=== PATIENT | male | born 1935 | race Caucasian/White ===

== ENCOUNTER 2020-05-07 14:31 | Emergency (ER) | payer OTHER, SELFPAY ==
[2020-05-07] VITALS (10 sets, daily range): BP systolic 108–128; BP diastolic 40–58; PULSE 74–87; RESP 14–20; TEMP 36.6–36.9; O2SAT 97–99; BMI 35.0
--- NOTE | ~2020-05-07 | CT_ITS ---
EXAMINATION: CT HEAD WITHOUT CONTRAST CLINICAL INFORMATION: AMS COMPARISON: June 12, 2019 TECHNIQUE: Contiguous axial imaging was performed from the skull base to vertex without intravenous administration of contrast. This CT examination was performed using dose optimization techniques as appropriate, variously including the following: *Automated exposure control *Adjustment of mA and/or kV according to patient size (this includes techniques or standardized protocols for targeted exams where dose is matched to indication/reason for exam; i.e. extremities or head) *Use of iterative reconstruction technique DLP: 879 mGy-cm FINDINGS: There is no evidence of acute intracranial hemorrhage or territorial infarction. No abnormal mass effect or midline shift is seen. Jackson to white matter differentiation is well preserved. No extra-axial fluid collections are identified. There is prominence of ventricles, sulci, and cisterns related to diffuse atrophy. There is periventricular white matter low density without significant change consistent with microangiopathy. There is calcification of carotid and vertebral arteries bilaterally. The osseous structures and soft tissues are normal. The mastoid air cells and visualized portions of the paranasal sinuses are well aerated. CT/CT head/brain wo con IMPRESSION: No acute intracranial pathology.
--- NOTE | ~2020-05-07 | XR_ITS ---
EXAMINATION: XR CHEST CLINICAL INFORMATION: Altered mental status. COMPARISON: Prior chest July 2019. TECHNIQUE: Frontal view of the chest was obtained. FINDINGS: Minimal linear opacity at the left base similar to prior compatible scarring and/or recurrent discoid atelectasis. Lungs otherwise clear. Calcification of the dorsal aorta. Cardiac silhouette and pulmonary vascularity unremarkable. Bone and soft tissues unremarkable. XR/XR chest 1V IMPRESSION: Minimal opacity left base compatible discoid atelectasis or scarring. No change compared to July 2019
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
--- NOTE | 2020-05-07 15:09 | ECG_ITS ---
Test Reason : AMS Blood Pressure : / mmHG Vent. Rate : 077 BPM Atrial Rate : 077 BPM P-R Int : 154 ms QRS Dur : 096 ms QT Int : 398 ms P-R-T Axes : 049 019 040 degrees QTc Int : 450 ms Normal sinus rhythm Normal ECG When compared with ECG of 05-SEP-2019 02:59, Premature atrial complexes are no longer Present Referred By: Leidy Gonsalez Electronically Signed By:ELIGIO GOSS MD
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
--- NOTE | 2020-05-07 15:43 | MHC.CM.ED ---
Patient came to ER from [facility] on [address] under Section 12. T/W attempted to speak to social security specialistKimberlee at [facility]. Left voicemail requesting return telephone call. Patient is well known to case investigator. Patient was discharged to [facility] in July 2019. T/W spoke with patient's HCP/daughter, Rafaela via telephone at [phone]. Patient was transferred from [facility] to [facility] on 04/27. Patient stated he needed to go home because his is sick. Rafaela verified Ivanna (), has dementia, but basically has her 2 daughters around 24 hours a day to care for her due to confusion. But otherwise, there are no new medical issues that would require patient to return home. Rafaela will be faxing a letter from Dr Wolfe stating patient can't return home. Rafaela is requesting patient's son, Morgan be contacted tonight with any issues with patient, because Rafaela will be caring for their mother fermin. Medical work up is pending. Crisis eval will be ordered per Irasema MARTINS. Continue to monitor for d/c needs.
[2020-05-07 16:22] LABS: MANUAL DIFF FLAG NO
[2020-05-07 16:25] LABS: Basophils Percent Auto 0.3 % (0-2); Eosinophils Absolute Auto 0.4 X10*3/uL (0.0-0.4); Eosinophils Percent Auto 3.3 % (0-4); Hematocrit 42.8 % (42-52); Imm Gran Abs Auto 0.02 X10*3/uL (0.00-0.03); Imm Gran Pct Auto 0.2 % (0.0-0.4); Lymphocytes Absolute Auto 2.4 X10*3/uL (1.2-4.9); Lymphocytes Percent Auto 21.2 % (20-40); Mean Corpuscular HGB Conc 32.7 g/dl (31.0-36.0); Mean Corpuscular Hemoglobin 30.7 pg (27.0-33.0); Mean Corpuscular Volume 93.9 fL (80-98); Mean Platelet Volume 10.4 fL (9.4-12.4); Monocytes Percent Auto 8.9 % (2-11); Neutrophils Absolute Auto 7.3 X10*3/uL (2.0-8.3); Neutrophils Percent Auto 66.1 % (45-73); Platelet Count 216 X10*3/uL (160-400); Red Blood Count 4.56 X10*6/uL (4.60-5.80); Red Cell Distribution Width 12.9 % (11.0-16.0); White Blood Count 11.1 X10*3/uL (4.8-10.8)
[2020-05-07 16:28] LABS: Glucose Urine UA NEG (NEG); Leukocyte Esterase Urine NEG (NEG); Nitrite Urine NEG (NEG); PH 5.5 (5.0-8.0); Urine Blood NEG (NEG); Urine Ketones NEG (NEG); Urine Protein NEG (NEG-TRACE)
[2020-05-07 16:29] LABS: Appearance Urine CLEAR; Color Urine YELLOW
[2020-05-07 16:49] LABS: Ammonia 44 umol/L (13-55)
[2020-05-07 16:55] LABS: Alanine Aminotransferase 7 U/L (0-40); Albumin Level 4.1 g/dL (3.5-5.0); Alkaline Phosphatase 101 U/L (39-117); Anion Gap 17 (12-20); Aspartate Amino Transferase 12 U/L (5-37); Bilirubin Total 0.2 mg/dL (0.0-1.0); Blood Urea Nitrogen 23 mg/dL (9-16); Calcium 8.9 mg/dL (8.4-10.2); Carbon Dioxide 29 mmol/L (22-29); Chloride 102 mmol/L (96-108); Estimated Glomerular Filt Rate > 60; Glucose Random 112 mg/dL (60-115); Sodium 143 mmol/L (135-145); Total Protein 7.2 g/dL (6.5-8.0)
[2020-05-07 16:56] LABS: Amphetamine Screen Urine Not Detected (Not Detect); Barbiturates, Urine Not Detected (Not Detect); Benzodiazepines Screen Urine Not Detected (Not Detect); Cannabinoid Screen Urine Not Detected (Not Detect); Cocaine Screen Urine Not Detected (Not Detect); Opiate Screen Urine Not Detected (Not Detect); Phencyclidine Screen Urine Not Detected (Not Detect)
--- NOTE | 2020-05-07 18:25 | PC.NURSE ---
report faxed to N
--- NOTE | 2020-05-07 18:59 | PC.NURSE ---
CALLED [facility] TO CONFIRM THEY RECEIVED PT SUMMARY. KARIME CONFIRMED THAT FAX WAS RECIEVED.
--- NOTE | 2020-05-07 19:55 | PC.NURSE ---
pt calm and cooperative, reports that he did have dinner and is not interested in anything to eat or drink right now. pt aware of his surrounding, has clear speech and is moving all extremities. pt able to use urinal while seated on side of bed.
--- NOTE | 2020-05-07 20:02 | PC.NURSE ---
pt requesting breathing treatment.
--- NOTE | 2020-05-07 20:29 | PC.NURSE ---
pt unhooked himself from wall oxygen and ambulatory to bathroom with steady gait. pt placed on portable tank. spo2 97%.
--- NOTE | 2020-05-07 20:38 | PC.NURSE ---
pt given hospital bed for comfort.
--- NOTE | 2020-05-07 21:21 | PC.NURSE ---
case management speaking with patient.
[2020-05-07 21:26] LABS: COVID-19 Test Negative (Negative); IDNOW Serial# 9DD0AD1C
[2020-05-07] MEDS: Montelukast Sodium 10 MG TABLET PO (21:53)
[2020-05-07] MEDS: Spironolactone 25 MG TABLET PO (21:53)
[2020-05-07] MEDS: Escitalopram Oxalate 20 MG TABLET PO (21:54)
[2020-05-07] MEDS: Metoprolol Tartrate 50 MG TABLET PO (21:54)
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
[2020-05-07] MEDS: Fluticasone Propionate Nasal 16 GM SPRAY 1 SPRAY NOSTRIL-B (22:53)
[2020-05-07] MEDS: Brimonidine Tartrate 0.2% Oph 5 ML BOTTLE 1 DROP EYE-BOTH (22:53)
[2020-05-08] VITALS (14 sets, daily range): BP systolic 107–122; BP diastolic 36–58; PULSE 59–87; RESP 14–20; TEMP 36.7–36.8; O2SAT 94–100
--- NOTE | 2020-05-08 02:45 | PC.NURSE ---
pt sleeping, pt ambulatory to bathroom with steady gait. pt asked to use a walker for safety/stability. walker provided for him.
--- NOTE | 2020-05-08 08:17 | PC.NURSE ---
[phone] Lexi daughter, this RN gave update [phone] Edward son
[2020-05-08] MEDS: Metoprolol Tartrate 50 MG TABLET PO ×2 (08:33→20:21)
[2020-05-08] MEDS: Torsemide 20 MG TABLET PO (08:34)
[2020-05-08] MEDS: Loratadine 10 MG TABLET PO (08:34)
[2020-05-08] MEDS: Losartan Potassium 25 MG TABLET PO (08:35)
[2020-05-08] MEDS: Aspirin 81 MG TAB.CHEW PO (08:35)
[2020-05-08] MEDS: Brimonidine Tartrate 0.2% Oph 5 ML BOTTLE 1 DROP EYE-BOTH ×2 (08:36→20:22)
[2020-05-08] MEDS: Tamsulosin HCL 0.4 MG CAPSULE PO (08:36)
[2020-05-08] MEDS: Finasteride 5 MG TABLET PO (08:36)
[2020-05-08] MEDS: Escitalopram Oxalate 20 MG TABLET PO (08:36)
[2020-05-08] MEDS: Fluticasone Propionate Nasal 16 GM SPRAY 1 SPRAY NOSTRIL-B (08:36)
[2020-05-08] MEDS: Spironolactone 25 MG TABLET PO ×2 (08:36→20:20)
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
--- NOTE | 2020-05-08 12:45 | PC.NURSE ---
This RN called [facility] who states pt is on list but no clinican to see pt at this time.
--- NOTE | 2020-05-08 16:13 | PC.NURSE ---
Seen by CARE team, cleared. Awaiting case management bed placement
[2020-05-08] MEDS: Montelukast Sodium 10 MG TABLET PO (20:20)
[2020-05-08] MEDS: Atorvastatin Calcium 40 MG TABLET PO (20:21)
[2020-05-09] VITALS (7 sets, daily range): BP systolic 118–149; BP diastolic 52–60; PULSE 60–81; RESP 15–18; TEMP 36.6; O2SAT 95–98
--- NOTE | 2020-05-09 07:25 | PC.NURSE ---
report taken from Yuan JIMENEZ. patient awake and sitting at side of bed eating breakfast. repositioned self back into bed. patient waiting for case management discharge plan.
[2020-05-09] MEDS: Fluticasone Propionate Nasal 16 GM SPRAY 1 SPRAY NOSTRIL-B (08:59)
[2020-05-09] MEDS: Brimonidine Tartrate 0.2% Oph 5 ML BOTTLE 1 DROP EYE-BOTH ×2 (08:59→21:34)
[2020-05-09] MEDS: Finasteride 5 MG TABLET PO (08:59)
[2020-05-09] MEDS: Metoprolol Tartrate 50 MG TABLET PO ×2 (08:59→20:40)
[2020-05-09] MEDS: Losartan Potassium 25 MG TABLET PO (09:00)
[2020-05-09] MEDS: Aspirin 81 MG TAB.CHEW PO (09:00)
[2020-05-09] MEDS: Torsemide 20 MG TABLET PO (09:00)
[2020-05-09] MEDS: Escitalopram Oxalate 20 MG TABLET PO (09:00)
[2020-05-09] MEDS: Loratadine 10 MG TABLET PO (09:00)
[2020-05-09] MEDS: Spironolactone 25 MG TABLET PO ×2 (09:01→20:41)
[2020-05-09] MEDS: Atorvastatin Calcium 40 MG TABLET PO (20:41)
[2020-05-09] MEDS: Montelukast Sodium 10 MG TABLET PO (20:41)
[2020-05-10] VITALS (10 sets, daily range): BP systolic 95–115; BP diastolic 43–54; PULSE 59–77; RESP 15–18; TEMP 36.4–36.8; O2SAT 90–100
--- NOTE | 2020-05-10 07:24 | PC.NURSE ---
Pt alert, responsive. Ambulated to bathroom with slow steady gait with walker. Eating breakfast at bedside. Offers no complaints at this time. Respirations even/unlabored bilaterally. Will continue to monitor.
[2020-05-10] MEDS: Torsemide 20 MG TABLET PO (08:49)
[2020-05-10] MEDS: Escitalopram Oxalate 20 MG TABLET PO (08:49)
[2020-05-10] MEDS: Finasteride 5 MG TABLET PO (08:49)
[2020-05-10] MEDS: Aspirin 81 MG TAB.CHEW PO (08:50)
[2020-05-10] MEDS: Tamsulosin HCL 0.4 MG CAPSULE PO (08:50)
[2020-05-10] MEDS: Metoprolol Tartrate 50 MG TABLET PO ×2 (08:50→23:42)
[2020-05-10] MEDS: Losartan Potassium 25 MG TABLET PO (08:50)
[2020-05-10] MEDS: Spironolactone 25 MG TABLET PO ×2 (08:50→23:42)
[2020-05-10] MEDS: Loratadine 10 MG TABLET PO (08:50)
[2020-05-10] MEDS: Brimonidine Tartrate 0.2% Oph 5 ML BOTTLE 1 DROP EYE-BOTH (08:51)
[2020-05-10] MEDS: Fluticasone Propionate Nasal 16 GM SPRAY 1 SPRAY NOSTRIL-B (08:51)
--- NOTE | 2020-05-10 10:30 | MHC.CM.ED ---
Patient remains in ER. Cleared by N. T/W is attempting to obtain a copy of patient's eval. Spoke with Kimberlee at [facility]. He was admitted to their facility on 04/20 from [facility]. He will not be allowed to return. Due to patient's behaviors, placement will be difficult to find. Referral has been broadcasted within 100 [address] of patient's zip code to all facilities that are [facility]. [facility] referrals have been made in [facility]. Continue to monitor for d/c needs.
[2020-05-10] MEDS: Miconazole 2 % Extra Thick Cr 56.7 Gm Tube 1 APPL TOPICAL (13:52)
--- NOTE | 2020-05-10 14:03 | MHC.CM.ED ---
[facility] with [facility] from [facility]. Patient's HCP has been invoked. Spoke with daughter/HCP Lexi Gibbs via telephone at [phone]. Lexi is agreeable to patient returning to [facility]. [facility] has been submitted to [facility]. Continue to monitor for d/c needs.
[2020-05-10] MEDS: Atorvastatin Calcium 40 MG TABLET PO (23:42)
[2020-05-10] MEDS: Montelukast Sodium 10 MG TABLET PO (23:42)
[2020-05-11] VITALS: RESP 18
[2020-05-11] MEDS: Brimonidine Tartrate 0.2% Oph 5 ML BOTTLE 1 DROP EYE-BOTH ×2 (00:18→09:45)
--- NOTE | 2020-05-11 08:30 | PC.NURSE ---
pt was awake and ate breakfast, now is resting in naps
[2020-05-11 09:41] VITALS: BP 163/84; PULSE 78
[2020-05-11] MEDS: Spironolactone 25 MG TABLET PO (09:41)
[2020-05-11] MEDS: Tamsulosin HCL 0.4 MG CAPSULE PO (09:41)
[2020-05-11] MEDS: Aspirin 81 MG TAB.CHEW PO (09:42)
[2020-05-11] MEDS: Torsemide 20 MG TABLET PO (09:42)
[2020-05-11 09:43] VITALS: BP 163/84; PULSE 77
[2020-05-11] MEDS: Losartan Potassium 25 MG TABLET PO (09:43)
[2020-05-11] MEDS: Escitalopram Oxalate 20 MG TABLET PO (09:43)
[2020-05-11] MEDS: Metoprolol Tartrate 50 MG TABLET PO (09:43)
[2020-05-11] MEDS: Loratadine 10 MG TABLET PO (09:43)
[2020-05-11] MEDS: Fluticasone Propionate Nasal 16 GM SPRAY 1 SPRAY NOSTRIL-B (09:44)
[2020-05-11 12:08] LABS: COVID-19 Test Negative (Negative); IDNOW Serial# 9DD0AD1C
--- NOTE | 2020-05-11 13:08 | MHC.CM.ED ---
Addendum entered by Orquidea Sandoval 05/11/20 13:10: Alert BLS transport arranged by [place] at the [place] for 330pm. Med [facility] with chart. Original Note: [facility] is willing to offer a bed and has obtained authorization from the [place]. Determination letter from [facility] obtained from Carmen Leyva on [place] and provided to [facility]. Per Loulou at [facility], that letter is still good. Patient's daughter/HCP, Rafaela made aware via telephone at [phone]. She will let her siblings and mother know. Perfecto JIMENEZ and Iman MARTINS aware. Continue to monitor for d/c needs.
--- NOTE | 2020-05-11 14:08 | PC.NURSE ---
RT called for treatment.
--- NOTE | 2020-05-11 14:15 | PC.NURSE ---
Report given to Abdirahman davis rn. Pending transport. Pt in bed, visiting with son, no noted distress.
[2020-05-11 14:54] VITALS: PULSE 84; O2SAT 95
[2020-05-11 15:29] VITALS: BP 118/87; PULSE 91; RESP 16; TEMP 36.7; O2SAT 96
== END 2020-05-11 16:39 | disposition skilled nursing facility (03) ==
PROVIDERS: Physician Assistant; Emergency Provider Emergency Medicine Emergency Medical Services
DX: F91.9 Conduct disorder, unspecified (principal); F33.9 Major depressive disorder, recurrent, unspecified; F43.10 Post-traumatic stress disorder, unspecified; Z20.822 Contact with and (suspected) exposure to COVID-19; I11.0 Hypertensive heart disease with heart failure; I50.9 Heart failure, unspecified; J44.9 Chronic obstructive pulmonary disease, unspecified; Z99.81 Dependence on supplemental oxygen; Z91.81 History of falling; Z87.891 Personal history of nicotine dependence; Z79.82 Long term (current) use of aspirin; Z79.899 Other long term (current) drug therapy
CPT/HCPCS: 36415; 70450; 71045; 80053; 80307; 81003; 82140; 84484; 85025; 85610; 85730; 87635; 93005; 94640; 96374; 99285